=== PATIENT | female | born 1955 | race Two or more races ===

== ENCOUNTER 2017-01-13 07:39 | Emergency (ER) | payer MEDICAID, OTHER ==
[~2017-01-13] VITALS: Ht 165.1 cm; Wt 78.0 kg
[~2017-01-13 07:39] MED LIST: METF-372
[2017-01-13] MEDS ORDERED: SODIUM CHLORIDE 0.9% 1,000 ML IVB ONE (08:01)
[2017-01-13] MEDS ORDERED: PROCHLORPERAZINE EDISYLATE 5 MG/ML 2ML VIAL IV ONE (08:15)
[2017-01-13 08:53] LABS: Basophils # (auto) 0 uL; Basophils % (auto) 0.5 % (0.0-2.0); CONDITION Y; Eosinophils # (auto) 0.2 uL; Eosinophils % (auto) 3.1 % (0.0-7.0); Hematocrit 38.2 % (36.0-46.0); Hemoglobin 12.7 g/dL (12.2-16.2); Lymphocytes # (auto) 2.3 uL; Lymphocytes % (auto) 29.6 % (10.0-50.0); Mean Corpuscular Hemoglobin 29.8 pg (28.0-32.0); Mean Corpuscular Hgb Conc. 33.3 g/dL (32.0-36.0); Mean Corpuscular Volume 89.4 fL (80.0-100.0); Mean Platelet Volume 7.7 fL (7.4-10.4); Monocytes # (auto) 0.5 uL; Monocytes % (auto) 6.8 % (0.0-12.0); Neutrophils # (auto) 4.6 uL; Platelet Count (auto) 332 10^3/uL (140-450); Red Cell Distribution Width 14.7 % (11.6-16.0); White Blood Cell 7.7 10^3/uL (4.4-10.8)
[2017-01-13 09:07] LABS: Albumin 3.5 g/dL (3.4-5.0); BUN/Creatinine Ratio 21.2; Bilirubin, Total 0.3 mg/dL (0.2-1.0); Calcium 8.6 mg/dL (8.5-10.1); Magnesium 2.4 mg/dL (1.6-2.6); Potassium 3.8 mmol/L (3.5-5.1); Total Protein 7.6 g/dL (6.4-8.2)
[2017-01-13] MEDS ORDERED: ACETAMINOPHEN 500 MG TAB PO PRN (09:15)
[2017-01-13] MEDS ORDERED: HYDROcodone-ACET 5/325MG TAB PO PRN (09:15)
[2017-01-13] MEDS ORDERED: ONDANSETRON HCL 4 MG/2 ML VIAL IV PRN (09:15)
[2017-01-13] MEDS ORDERED: MORPHINE SULF INJ 2 MG/ML SYRINGE 1ML IV PRN (09:15)
[2017-01-13] MEDS ORDERED: DEXTROSE (50%) 50ML SYRG IV PRN (09:45)
[2017-01-13] MEDS ORDERED: PANTOPRAZOLE 40 MG/10 ML VIAL IV ONE (09:45)
[2017-01-13] MEDS ORDERED: MECLIZINE HCL 25 MG TAB PO PRN (10:00)
[2017-01-13 10:02] LABS: Cholesterol 146 mg/dL (< 200); HDL Cholesterol 65 mg/dL (40-59); LDL Cholesterol 71 mg/dL (< 100); Triglycerides 95 mg/dL (< 150)
[2017-01-13 10:08] VITALS: BP 116/75
[2017-01-13] MEDS ORDERED: InsuLIN REG 1unit/0.01ml Soln (100units/ml) SC SCH (11:30)
[2017-01-13] MEDS ORDERED: ACCU-CHEK COMFORT CURVE STRIP VI SCH (11:30)
[2017-01-13] MEDS ORDERED: PRAVASTATIN SODIUM 20 MG TAB PO SCH (22:00)
[2017-01-14] MEDS ORDERED: LEVOTHYROXINE SODIUM 50 MCG TAB PO SCH (07:00)
[2017-01-14] MEDS ORDERED: PANTOPRAZOLE 40 MG/10 ML VIAL IV SCH (10:00)
== END 2017-01-13 11:10 | disposition home or self-care (01) ==
LOC: ER 07:39 → UNDOADMIN 07:40 → OVERFLOW 07:40 → ER 09:48
DX: R42 Dizziness and giddiness (principal); E11.65 Type 2 diabetes mellitus with hyperglycemia; E03.9 Hypothyroidism, unspecified; E78.5 Hyperlipidemia, unspecified; I10 Essential (primary) hypertension; E86.0 Dehydration; J45.909 Unspecified asthma, uncomplicated; Z79.4 Long term (current) use of insulin
CPT/HCPCS: 36415; 70450; 71010; 80053; 80061; 80320; 83036; 83735; 84443; 85025; 93005; 94761; 96361; 96374; 96375; 99285; C9113; J0780; J7030

== ENCOUNTER → 2021-02-28 | Outpatient (CLI) | payer MEDICAID | END | disposition home or self-care (01) | LOC: Rad HDHVI 08:00 | PROVIDERS: ATTEND Internal Medicine | DX: I51.7 Cardiomegaly (principal); R07.89 Other chest pain; R53.82 Chronic fatigue, unspecified | CPT/HCPCS: 93306 ==

== ENCOUNTER → 2021-03-07 | Outpatient (CLI) | payer MEDICAID ==
[~2021-03-07] VITALS: Ht 165.1 cm; Wt 80.7 kg
[~2021-03-07] MED LIST changes: +ADENOSINE 68 MG in GIVE UN-DILUTED 0 ML IV ONE; +ADENOSINE 90 MG/30 ML INJ IV ONE
== END | disposition home or self-care (01) ==
LOC: Rad HDHVI 07:55
PROVIDERS: ATTEND Internal Medicine
DX: R07.9 Chest pain, unspecified (principal); E11.9 Type 2 diabetes mellitus without complications
CPT/HCPCS: 78452; 93005; 96374; 96375; A9500; J0153

== ENCOUNTER 2023-05-21 19:05 | Emergency (ER) | payer OTHER, MEDICAID ==
[~2023-05-21 19:05] MED LIST changes: -ADENOSINE 68 MG in GIVE UN-DILUTED 0 ML IV ONE; -ADENOSINE 90 MG/30 ML INJ IV ONE
== END 2023-05-21 21:52 | disposition left against medical advice (07) ==
LOC: ER 19:05
DX: R04.0 Epistaxis (principal); Z53.21 Procedure and treatment not carried out due to patient leaving prior to being seen by health care provider

== ENCOUNTER → 2023-07-01 | Outpatient (CLI) | payer OTHER, MEDICAID ==
[~2023-07-01] VITALS: Ht 165.1 cm; Wt 76.7 kg
[2023-07-01] MEDS: ADENOSINE 64 MG in GIVE UN-DILUTED 0 ML IV ONE (09:23)
== END | disposition home or self-care (01) ==
LOC: XYW 08:09
PROVIDERS: ATTEND Internal Medicine
DX: R07.9 Chest pain, unspecified (principal); J45.909 Unspecified asthma, uncomplicated; E11.9 Type 2 diabetes mellitus without complications
CPT/HCPCS: 78452; 93017; A9500; J0153

== ENCOUNTER → 2023-11-10 | Outpatient (CLI) | payer OTHER, MEDICAID ==
[~2023-11-10] MED LIST changes: +ALBUTEROL SULF 2.5 MG/0.5ML(0.5%) NEB SOLN ONE
== END | disposition home or self-care (01) ==
LOC: RT 09:02
PROVIDERS: ATTEND Internal Medicine Pulmonary Disease
DX: J44.9 Chronic obstructive pulmonary disease, unspecified (principal); R06.09 Other forms of dyspnea; Z87.891 Personal history of nicotine dependence
CPT/HCPCS: 94060; 94727; 94729

== ENCOUNTER → 2024-06-20 | Outpatient (CLI) | payer OTHER, MEDICAID ==
[~2024-06-20] MED LIST changes: -ALBUTEROL SULF 2.5 MG/0.5ML(0.5%) NEB SOLN ONE
[2024-06-20 09:41] LABS: Urine Bacteria None Seen /hpf (None Seen)
[2024-06-20 09:55] LABS: Urine Blood Negative /uL (Negative); Urine Clarity Clear (Clear); Urine Color Light-Yellow (Yellow); Urine Protein, UAD Negative (Negative); Urine Specific Gravity 1.036 (1.001-1.035); Urine Squamous Epithelial Cell FEW /hpf (<5); Urine Urobilinogen Normal (Negative); Urine WBC 1 /HPF (0-5)
[2024-06-20 10:20] LABS: Cholesterol 173 mg/dL (< 200)
[2024-06-20 10:21] LABS: Triglycerides 106 mg/dL (< 150)
[2024-06-20 10:22] LABS: LDL Cholesterol 85 mg/dL (< 100)
[2024-06-20 10:29] LABS: HDL Cholesterol 82 mg/dL (40-59)
== END | disposition home or self-care (01) ==
LOC: LAB 09:27
PROVIDERS: ATTEND Internal Medicine
DX: E11.9 Type 2 diabetes mellitus without complications (principal); E78.5 Hyperlipidemia, unspecified
CPT/HCPCS: 36415; 80061; 81001; 83036

== ENCOUNTER → 2024-08-16 | Outpatient (CLI) | payer OTHER, MEDICAID | END | disposition home or self-care (01) | LOC: LAB 11:32 | PROVIDERS: ATTEND Internal Medicine | DX: E03.9 Hypothyroidism, unspecified (principal) | CPT/HCPCS: 36415; 84443 ==

== ENCOUNTER 2024-11-14 09:45 | Outpatient (CLI) | payer OTHER, MEDICAID | END 2024-11-14 17:00 | disposition home or self-care (01) | LOC: LAB 09:45 | PROVIDERS: ATTEND Internal Medicine | DX: E03.9 Hypothyroidism, unspecified (principal) | CPT/HCPCS: 36415; 84443 ==

== ENCOUNTER 2025-02-13 13:37 | Outpatient (CLI) | payer OTHER, MEDICAID | END 2025-02-13 17:00 | disposition home or self-care (01) | LOC: LAB 13:37 | PROVIDERS: ATTEND Internal Medicine | DX: E03.9 Hypothyroidism, unspecified (principal) | CPT/HCPCS: 36415; 84443 ==

== ENCOUNTER → 2025-05-12 | Outpatient (CLI) | payer OTHER, MEDICAID | END | disposition home or self-care (01) | LOC: LAB 12:50 | PROVIDERS: ATTEND Internal Medicine | DX: N39.0 Urinary tract infection, site not specified (principal) | CPT/HCPCS: 87086 ==